=== PATIENT | male | born 1970 | race Caucasian/White ===

== ENCOUNTER 2021-08-14 05:47 | Observation (INO) ==
[~2021-08-14 05:47] MED LIST: Buffered Lidocaine 1% SYRIN 1 ml INTRADERM ONE; DiMENhydriNATE IV 50 mg/ml 1 ml VIAL IV PUSH ONE; Lactated Ringers 1000 ml BAG 1,000 ML IV SCH; Metoclopramide 5 MG/ML VIAL (10 mg) IV PRN; Naloxone 0.4 mg VIAL 0.4 mg/ml 1 ml VIAL IV PRN; Ondansetron 4 mg VIAL 2 MG/ML 2 ml VIAL IV PRN
[2021-08-14] MEDS ORDERED: DiMENhydriNATE IV 50 mg/ml 1 ml VIAL ONE (06:07)
[2021-08-14] MEDS ORDERED: Buffered Lidocaine 1% SYRIN 1 ml INTRADERM ONE (06:07)
[2021-08-14] MEDS ORDERED: ceFAZolin 2 GM PREMIX 2 GM/50 ML BAG ONE (06:07)
[2021-08-14] MEDS ORDERED: Sevoflurane BOTTLE ONE (06:48)
[2021-08-14] MEDS ORDERED: fentaNYL 250 mcg/5 ml 50 MCG/ML 5 ml VIAL (250 MCG) ONE (06:48)
[2021-08-14] MEDS ORDERED: Lidocaine 2% PF 5 ML VIAL ONE (06:48)
[2021-08-14] MEDS ORDERED: Propofol 10 MG/ML 20 ML BTL ONE (06:48)
[2021-08-14] MEDS ORDERED: Rocuronium 50 mg VIAL 10 mg/ml 5 ml VIAL (50 mg) ONE ×2 (06:55→11:04)
[2021-08-14] MEDS ORDERED: Midazolam 2 mg/2 ml VIAL 1 mg/ml 2 ml VIAL (2 mg) ONE (07:04)
[2021-08-14] MEDS ORDERED: ceFAZolin VIAL VIAL ONE (07:35)
[2021-08-14] MEDS ORDERED: Bupivacaine 0.25% SDV 30 ML ONE (07:35)
[2021-08-14] MEDS ORDERED: BUPIVACAINE **LIPOSOME/PF 13.3 MG/ML (266MG/ 20ML) VIAL (RESTRICTED) INFIL ONE (08:00)
[2021-08-14] MEDS ORDERED: Ondansetron 4 mg VIAL 2 MG/ML 2 ml VIAL ONE (10:18)
[2021-08-14] MEDS ORDERED: Dexamethasone IV 4 MG/ML VIAL 1 ml VIAL ONE (10:18)
[2021-08-14] MEDS ORDERED: EPHEDrine (Pressors) 50 MG/ML VIAL ONE (11:01)
[2021-08-14] MEDS ORDERED: fentaNYL 100 mcg/2 ml 50 MCG/ML VIAL ONE ×2 (12:45→13:09)
[2021-08-14] MEDS: fentaNYL 100 mcg/2 ml 50 MCG/ML VIAL IV PRN ×7 (12:47→13:29)
[2021-08-14] MEDS ORDERED: Magnesium Hydroxide LIQ 30 ML UDC PO PRN (12:51)
[2021-08-14] MEDS ORDERED: HYDROcodone/ACETAMIN 5/325 mg TAB PO PRN (12:51)
[2021-08-14] MEDS ORDERED: Ondansetron 4 mg VIAL 2 MG/ML 2 ml VIAL IV PRN (12:51)
[2021-08-14] MEDS ORDERED: Methylphenidate ER 18 mg TAB PO PRN (12:55)
[2021-08-14] MEDS ORDERED: HYDROcodone/ACETAMIN 5/325 mg TAB ONE ×2 (13:07→13:30)
[2021-08-14] MEDS: HYDROcodone/ACETAMIN 5/325 mg TAB PO PRN ×4 (13:08→22:22)
[2021-08-14] MEDS ORDERED: Multivitamins/Minerals TAB PO SCH (21:00)
[2021-08-15] MEDS: HYDROcodone/ACETAMIN 5/325 mg TAB PO PRN (08:15)
[2021-08-15 08:18] VITALS: BP 144/95
== END 2021-08-15 11:00 | disposition home or self-care (01) ==
LOC: OR 05:47 → SSU 14:52 → INTOOBSV 14:52
PROVIDERS: ADMIT Neurological Surgery; ATTEND Neurological Surgery

== ENCOUNTER 2022-05-05 06:13 | Observation (INO) ==
[~2022-05-05 06:13] MED LIST changes: -DiMENhydriNATE IV 50 mg/ml 1 ml VIAL IV PUSH ONE; +Famotidine IV 10 MG/ML 2 ml VIAL (20 mg) IV ONE; -Metoclopramide 5 MG/ML VIAL (10 mg) IV PRN; -Naloxone 0.4 mg VIAL 0.4 mg/ml 1 ml VIAL IV PRN; -Ondansetron 4 mg VIAL 2 MG/ML 2 ml VIAL IV PRN
[2022-05-05] MEDS ORDERED: Famotidine IV 10 MG/ML 2 ml VIAL (20 mg) ONE (06:29)
[2022-05-05] MEDS ORDERED: ceFAZolin 2 GM in NS PREMIX 2 GM/100 ML BAG IVPB ONE (06:29)
[2022-05-05] MEDS ORDERED: Buffered Lidocaine 1% SYRIN 1 ml INTRADERM ONE (06:29)
[2022-05-05] MEDS ORDERED: Thrombin 5,000 UNITS 1 APPLIC KIT - topical use - TOPICAL ONE (07:14)
[2022-05-05] MEDS ORDERED: Lidocaine 1% w EPI 1:200,000 SDV 30 ML VIAL ONE (07:14)
[2022-05-05] MEDS ORDERED: ceFAZolin VIAL VIAL ONE (07:14)
[2022-05-05] MEDS ORDERED: Gelfoam Sponge SIZE 100 SPONGE ONE (07:15)
[2022-05-05] MEDS ORDERED: Propofol 10 MG/ML 20 ML BTL ONE (07:18)
[2022-05-05] MEDS ORDERED: Lidocaine 2% PF 5 ML VIAL ONE (07:18)
[2022-05-05] MEDS ORDERED: Midazolam 2 mg/2 ml VIAL 1 mg/ml 2 ml VIAL (2 mg) ONE (07:18)
[2022-05-05] MEDS ORDERED: fentaNYL 100 mcg/2 ml 50 MCG/ML VIAL ONE ×3 (07:18→09:57)
[2022-05-05] MEDS ORDERED: Rocuronium 50 mg VIAL 10 mg/ml 5 ml VIAL (50 mg) ONE (07:18)
[2022-05-05] MEDS ORDERED: Ondansetron 4 mg VIAL 2 MG/ML 2 ml VIAL ONE (08:10)
[2022-05-05] MEDS ORDERED: Acetaminophen IV 1 GM/100ML 1,000 MG/100 ML BAG IV ONE (08:10)
[2022-05-05] MEDS ORDERED: Dexamethasone IV 4 MG/ML VIAL 1 ml VIAL ONE (08:10)
[2022-05-05] MEDS ORDERED: Phenylephrine 40 mcg/mL 10mL (400mcg) SYRINGE ONE (08:12)
[2022-05-05] MEDS ORDERED: Ondansetron 4 mg VIAL 2 MG/ML 2 ml VIAL IV PRN ×2 (08:41→09:08)
[2022-05-05] MEDS ORDERED: Naloxone 0.4 mg VIAL 0.4 mg/ml 1 ml VIAL IV PRN (08:41)
[2022-05-05] MEDS ORDERED: Methylphenidate ER 18 mg TAB PO PRN (09:13)
[2022-05-05] MEDS: fentaNYL 100 mcg/2 ml 50 MCG/ML VIAL IV PRN ×3 (09:39→09:57)
[2022-05-05] MEDS ORDERED: Lactated Ringers 1000 ml BAG 1,000 ML IV SCH (10:00)
[2022-05-05] MEDS: HYDROcodone/ACETAMIN 5/325 mg TAB PO PRN ×3 (10:54→20:08)
[2022-05-06] MEDS: HYDROcodone/ACETAMIN 5/325 mg TAB PO PRN ×3 (00:13→09:15)
[2022-05-06 08:06] VITALS: BP 132/68
== END 2022-05-06 09:45 | disposition home or self-care (01) ==
LOC: SSU 06:13 → OR 06:13
PROVIDERS: ADMIT Neurological Surgery; ATTEND Neurological Surgery